=== PATIENT | female | born 1980 | race Caucasian/White ===

== ENCOUNTER 2020-01-21 11:33 | Emergency (ER) | payer SELFPAY ==
[~2020-01-21] VITALS: Ht 162.6 cm; Wt 79.1 kg
[2020-01-21 11:42] VITALS: BP 126/86; TEMP 97.9
[2020-01-21 12:39] LABS: BASO # 0.1 (0.0-0.2); BASO % 0.6 % (0.0-2.0); EOS # 0.8 (0.0-0.7); EOS % 7.2 % (0-4.0); HEMATOCRIT 48.7 % (37.0-47.0); HEMOGLOBIN 16.1 g/dl (12.5-16.0); LYMPH # 1.8 (1.2-3.4); LYMPH % 16.8 % (20.0-51.0); MEAN CELL VOLUME 93 fl (80.0-100.0); MEAN CORPUSCULAR HEMOGLOBIN 31 pg (27.0-31.0); MEAN CORPUSCULAR HGB CONC 33 g/dl (33.0-37.0); MEAN PLATELET VOLUME 10.7 fl (7.4-10.4); MONO # 0.8 (0.1-0.6); PLATELET COUNT 238 K/mm3 (130-400); RED BLOOD COUNT 5.23 M/mm3 (4.10-5.30); REDCELL DISTRIBUTION WIDTH-CV 12.8 % (11.5-14.5)
[2020-01-21 12:50] LABS: ALBUMIN 3.5 gm/dL (3.5-5.0); BILIRUBIN,TOTAL 0.8 mg/dL (0.0-1.0); C-REACTIVE PROTEIN 0.6 mg/dL (0.0-0.9); CALCIUM 8.6 mg/dL (8.4-10.2); CREATININE, serum 0.68 (0.52-1.25); POTASSIUM 4.1 mmol/L (3.4-5.0); TOTAL PROTEIN 6.1 gm/dL (6.4-8.2)
[2020-01-21 12:55] VITALS: PULSE 91
== END 2020-01-21 12:55 | disposition left against medical advice (07) ==
LOC: COL.ER 11:33
PROVIDERS: Physician Assistant
DX: R10.30 Lower abdominal pain, unspecified (principal); R11.0 Nausea; Z90.711 Acquired absence of uterus with remaining cervical stump
CPT/HCPCS: C9113; J1885; J2405; J7030